=== PATIENT | female | born 1960 | race Caucasian/White ===

== ENCOUNTER 2017-05-24 19:01 | Observation (INO) | payer BC ==
[2017-05-24] MEDS ORDERED: Sodium Chloride 0.9% 2.5 ML Syringe FLUSH PRN (19:20)
[2017-05-24] MEDS ORDERED: Aspirin 81 MG Tab.Chew PO ONE (19:20)
[2017-05-24] MEDS ORDERED: Nitroglycerin 0.4 MG Tab.SL SL ONE (19:20)
[2017-05-24] MEDS ORDERED: Famotidine 20 MG/2 ML SDV IVPUSH ONE (19:20)
[2017-05-24] MEDS ORDERED: Sodium Chloride 0.9% 1,000 ML IV ONE (19:20)
[2017-05-24] MEDS ORDERED: Sodium Chloride 0.9% 10 ML Syringe FLUSH PRN (19:20)
--- NOTE | 2017-05-24 19:24 | EDM.PDOC ---
ED HPI GENERAL MEDICAL PROBLEM - General Chief Complaint: Chest Pain Stated Complaint: CHEST PAIN Time Seen by Provider: 05/24/17 19:11 Source of Information: Reports: Patient, Family History Limitations: Reports: No Limitations - History of Present Illness INITIAL COMMENTS - FREE TEXT/NARRATIVE: HISTORY AND PHYSICAL: []57-year-old female with chest pressure for an hour and 45 minutes History of Present Illness: []Patient has family history of mother having IL in her 50s although mom was a heavy smoker Patient does take blood pressure medication and cholesterol medications Review of Systems: As per history of present illness and below otherwise all systems reviewed and negative. Past medical history: As per history of present illness and as reviewed below otherwise noncontributory. Surgical history: As per history of present illness and as reviewed below otherwise noncontributory. Social history: No reported history of drug or alcohol abuse. Family history: As per history of present illness and as reviewed below otherwise noncontributory. Physical exam: HEENT: Atraumatic, normocehpalic, pupils reactive, negative for conjunctival pallor or scleral icterus, mucous membranes moist, throat clear, neck supple, nontender, trachea midline. Lungs: Clear to auscultation, breath sounds equal bilaterally, chest non tender. Heart: S1S2, regular, negative for clicks, rubs, or JVD. Abdomen: Soft, nondistended, nontender. Negative for masses or hepatossplenmegaly. Negative for costovertebral tenderness. Pelvis: Stable nontender. Genitourinary: Deferred. Rectal: Deferred Extremities: Atraumatic, negative for cords or calf pain. Neurovascular unremarkable. Neuro: Awake, alert, oriented. Cranial nerves II through XII unremarkable. Cerebellum unremarkable. Motor and sensory unremarkable throughout. Exam nonfocal. Discussed case with Dr. Mast who is accepted patient for observation on telemetry for chest pain Diagnostics: [CBC CMP and lipase troponin UA chest x-ray] Therapeutics: [Nitroglycerin sublingual 2] Impression: [Chest pain resolved] Plan: [Refer for observation] Definitive disposition and diagnosis as appropriate pending reevaluation and review of above. Onset: Today, Sudden Duration: Hour(s): Location: Reports: Chest Quality: Reports: Pressure Severity: Moderate (3-4) Worsens with: Reports: None Chest Pain Score (Numeric/FACES): 3 - Related Data Allergies Allergy/AdvReac Type Severity Reaction Status Date / Time No Known Allergies Allergy Verified 08/12/14 08:22 Home Meds: Home Meds Benazepril HCl [Lotensin] 20 mg PO 05/24/17 [History] atorvaSTATin [Lipitor] 40 mg PO ONETIME 05/24/17 [History] Past Medical History Cardiovascular History: Reports: High Cholesterol, Hypertension Social & Family History - Tobacco Use Smoking Status *Q: Never Smoker - Caffeine Use Caffeine Use: Reports: Coffee, Soda - Recreational Drug Use Recreational Drug Use: No ED ROS GENERAL - Review of Systems Review Of Systems: ROS reveals no pertinent complaints other than HPI. ED EXAM, GENERAL - Physical Exam Exam: See Below (See dictation) EKG INTERPRETATION Rhythm: NSR Comparison: NA - No Prior EKG Course - Vital Signs Last Recorded V/S: Last Vital Signs Temp 36.4 C 05/24/17 19:09 Pulse 94 05/24/17 20:00 Resp 18 05/24/17 20:00 BP 104/62 05/24/17 20:00 Pulse Ox 98 05/24/17 20:00 - Orders/Labs/Meds Orders: Active Orders 24 hr Category Date Time Status Patient Status [ADT] Stat ADT 05/24/17 20:14 Ordered Cardiac Monitoring [RC] . DIRECTED Care 05/24/17 19:20 Active EKG Documentation Completion [RC] STAT Care 05/24/17 19:22 Active Oxygen Therapy [RC] ASDIRECTED Care 05/24/17 19:20 Active Pulse Oximetry [RC] ASDIRECTED Care 05/24/17 19:20 Active Chest 1V Frontal [CR] Stat Exams 05/24/17 19:20 Taken UA W/MICROSCOPIC [URIN] Stat Lab 05/24/17 19:20 Uncollected Sodium Chloride 0.9% [Normal Saline] 1,000 ml Med 05/24/17 19:20 Active IV .Bolus Sodium Chloride 0.9% [Saline Flush] Med 05/24/17 19:20 Active 10 ml FLUSH ASDIRECTED PRN Sodium Chloride 0.9% [Saline Flush] Med 05/24/17 19:20 Active 2.5 ml FLUSH ASDIRECTED PRN Saline Lock Insert [OM.PC] Stat Oth 05/24/17 19:20 Ordered Medication Orders Sodium Chloride (Normal Saline) 1,000 mls @ 999 mls/hr IV .Bolus ONE Stop: 05/24/17 20:20 Last Admin: 05/24/17 19:38 Dose: 999 mls/hr Sodium Chloride (Saline Flush) 10 ml FLUSH ASDIRECTED PRN PRN Reason: Keep Vein Open Sodium Chloride (Saline Flush) 2.5 ml FLUSH ASDIRECTED PRN PRN Reason: Keep Vein Open Labs: Laboratory Tests 05/24/17 05/24/17 05/24/17 Range/Units 19:25 19:25 19:25 WBC 9.23 (4.0-11.0) K/uL RBC 4.28 L (4.30-5.90) M/uL Hgb 13.0 (12.0-16.0) g/dL Hct 38.4 (36.0-46.0) % MCV 89.7 (80.0-98.0) fL MCH 30.4 (27.0-32.0) pg MCHC 33.9 (31.0-37.0) g/dL RDW Std Deviation 43.2 (28.0-62.0) fl RDW Coeff of Eleni 13 (11.0-15.0) % Plt Count 198 (150-400) K/uL MPV 9.20 (7.40-12.00) fL Neut % (Auto) 83.7 H (48.0-80.0) % Lymph % (Auto) 7.3 L (16.0-40.0) % [place] % (Auto) 7.7 (0.0-15.0) % Eos % (Auto) 1.2 (0.0-7.0) % Baso % (Auto) 0.1 (0.0-1.5) % Neut # (Auto) 7.7 H (1.4-5.7) K/uL Lymph # (Auto) 0.7 (0.6-2.4) K/uL [place] # (Auto) 0.7 (0.0-0.8) K/uL Eos # (Auto) 0.1 (0.0-0.7) K/uL Baso # (Auto) 0.0 (0.0-0.1) K/uL Nucleated RBC % 0.0 /100WBC Nucleated RBCs # 0 K/uL INR 0.98 (0.86-1.11) Sodium 137 (136-146) mmol/L Potassium 3.9 (3.5-5.1) mmol/L Chloride 101 (98-110) mmol/L Carbon Dioxide 27 (21-31) mmol/L BUN 20 (6.0-23.0) mg/dL Creatinine 1.0 (0.6-1.5) mg/dL Est Cr Clr Drug Dosing 54.51 mL/min Estimated GFR (MDRD) 56.7 ml/min Glucose 82 (60-110) mg/dL Calcium 9.5 (8.8-10.8) mg/dL Total Bilirubin 0.4 (0.1-1.5) mg/dL AST 29 (5-40) IU/L ALT 24 (8-54) IU/L Alkaline Phosphatase 57 (40-150) Troponin I (0.0-0.29) NG/ML Total Protein 7.9 (6.0-8.0) g/dL Albumin 4.4 (3.5-5.0) g/dL Globulin 3.5 (2.0-3.5) g/dL Albumin/Globulin Ratio 1.3 (1.3-2.8) Amylase 49 (10-90) U/L Lipase 19 (7-80) U/L 05/24/ Range/Units 19:25 WBC (4.0-11.0) K/uL RBC (4.30-5.90) M/uL Hgb (12.0-16.0) g/dL Hct (36.0-46.0) % MCV (80.0-98.0) fL MCH (27.0-32.0) pg MCHC (31.0-37.0) g/dL RDW Std Deviation (28.0-62.0) fl RDW Coeff of Eleni (11.0-15.0) % Plt Count (150-400) K/uL MPV (7.40-12.00) fL Neut % (Auto) (48.0-80.0) % Lymph % (Auto) (16.0-40.0) % [place] % (Auto) (0.0-15.0) % Eos % (Auto) (0.0-7.0) % Baso % (Auto) (0.0-1.5) % Neut # (Auto) (1.4-5.7) K/uL Lymph # (Auto) (0.6-2.4) K/uL [place] # (Auto) (0.0-0.8) K/uL Eos # (Auto) (0.0-0.7) K/uL Baso # (Auto) (0.0-0.1) K/uL Nucleated RBC % /100WBC Nucleated RBCs # K/uL INR (0.86-1.11) Sodium (136-146) mmol/L Potassium (3.5-5.1) mmol/L Chloride (98-110) mmol/L Carbon Dioxide (21-31) mmol/L BUN (6.0-23.0) mg/dL Creatinine (0.6-1.5) mg/dL Est Cr Clr Drug Dosing mL/min Estimated GFR (MDRD) ml/min Glucose (60-110) mg/dL Calcium (8.8-10.8) mg/dL Total Bilirubin (0.1-1.5) mg/dL AST (5-40) IU/L ALT (8-54) IU/L Alkaline Phosphatase (40-150) Troponin I < 0.10 (0.0-0.29) NG/ML Total Protein (6.0-8.0) g/dL Albumin (3.5-5.0) g/dL Globulin (2.0-3.5) g/dL Albumin/Globulin Ratio (1.3-2.8) Amylase (10-90) U/L Lipase (7-80) U/L Meds: Medications Generic Name Dose Route Start Last Admin Trade Name Freq PRN Reason Stop Dose Admin Sodium Chloride 1,000 mls @ 999 mls/hr 05/24/17 19:20 05/24/17 19:38 Normal Saline IV 05/24/17 20:20 999 mls/hr .Bolus ONE Administration Sodium Chloride 10 ml 05/24/17 19:20 Saline Flush FLUSH ASDIRECTED PRN Keep Vein Open Sodium Chloride 2.5 ml 05/24/17 19:20 Saline Flush FLUSH ASDIRECTED PRN Keep Vein Open Discontinued Medications Generic Name Dose Route Start Last Admin Trade Name Freq PRN Reason Stop Dose Admin Aspirin 324 mg 05/24/17 19:20 05/24/17 19:39 Aspirin PO 05/24/17 19:21 324 mg ONETIME ONE Administration Famotidine 20 mg 05/24/17 19:20 05/24/17 19:38 Pepcid IVPUSH 05/24/17 19:21 20 mg ONETIME ONE Administration Nitroglycerin 0.4 mg 05/24/17 19:20 05/24/17 19:49 Nitrostat SL 05/24/17 19:21 Not Given ONETIME ONE Nitroglycerin 0.4 mg 05/24/17 19:29 05/24/17 19:51 Nitrostat SL 05/24/17 19:40 0.4 mg Q5M PRN Administration Chest Pain Departure - Departure Time of Disposition: 20:17 Disposition: Refer to Observation Condition: Good Clinical Impression: Chest pain Qualifiers: Chest pain type: other chest pain Qualified Code(s): R07.89 - Other chest pain ; R07.8 - Other chest pain Forms: ED Department Discharge Additional Instructions: The following information is given to patients seen in the emergency department who are being discharged to home. This information is to outline your options for follow-up care. We provide all patients seen in our emergency department with a follow-up referral. The need for follow-up, as well as the timing and circumstances, are variable depending upon the specifics of your emergency department visit. If you don't have a primary care physician on staff, we will provide you with a referral. We always advise you to contact your personal physician following an emergency department visit to inform them of the circumstance of the visit and for follow-up with them and/or the need for any referrals to a consulting specialist. The emergency department will also refer you to a specialist when appropriate. This referral assures that you have the opportunity for followup care with a specialist. All of these measure are taken in an effort to provide you with optimal care, which includes your followup. Under all circumstances we always encourage you to contact your private physician who remains a resource for coordinating your care. When calling for followup care, please make the office aware that this follow-up is from your recent emergency room visit. If for any reason you are refused follow-up, please contact the [facility] emergency department at and asked to speak to the emergency department charge nurse. - My Orders Last 24 Hours: My Active Orders 05/24/17 19:20 Cardiac Monitoring [RC] . DIRECTED Oxygen Therapy [RC] ASDIRECTED Pulse Oximetry [RC] ASDIRECTED Chest 1V Frontal [CR] Stat UA W/MICROSCOPIC [URIN] Stat Sodium Chloride 0.9% [Normal Saline] 1,000 ml IV .Bolus Sodium Chloride 0.9% [Saline Flush] 10 ml FLUSH ASDIRECTED PRN Sodium Chloride 0.9% [Saline Flush] 2.5 ml FLUSH ASDIRECTED PRN Saline Lock Insert [OM.PC] Stat 05/24/17 19:22 EKG Documentation Completion [RC] STAT 05/24/17 20:14 Patient Status [ADT] Stat - Assessment/Plan Last 24 Hours: My Active Orders 05/24/17 19:20 Cardiac Monitoring [RC] . DIRECTED Oxygen Therapy [RC] ASDIRECTED Pulse Oximetry [RC] ASDIRECTED Chest 1V Frontal [CR] Stat UA W/MICROSCOPIC [URIN] Stat Sodium Chloride 0.9% [Normal Saline] 1,000 ml IV .Bolus Sodium Chloride 0.9% [Saline Flush] 10 ml FLUSH ASDIRECTED PRN Sodium Chloride 0.9% [Saline Flush] 2.5 ml FLUSH ASDIRECTED PRN Saline Lock Insert [OM.PC] Stat 05/24/17 19:22 EKG Documentation Completion [RC] STAT 05/24/17 20:14 Patient Status [ADT] Stat
[2017-05-24] MEDS: Nitroglycerin 0.4 MG Tab.SL SL PRN ×2 (19:46→19:51)
--- NOTE | 2017-05-24 20:48 | PCM.HP ---
H&P History of Present Illness - General Admit Problem/Dx: Admission Diagnosis/Problem Admission Diagnosis/Problem Chest pain - History of Present Illness Initial Comments - Free Text/Narative: 57 yo female with pmh of hypertension, and hyperlipidemia who presents with chest pain. She believes it might be indigestion. She describes it a as a feeling of fullness extending from her epigastrum to her neck. She denies any shortness of breath or cough. Chest Pain Score (Numeric/FACES): 3 - Related Data Allergies/Adverse Reactions: Allergies Allergy/AdvReac Type Severity Reaction Status Date / Time No Known Allergies Allergy Verified 08/12/14 08:22 Home Medications: Home Meds Benazepril HCl [Lotensin] 20 mg PO DAILY 05/24/17 [History] atorvaSTATin [Lipitor] 40 mg PO DAILY 05/24/17 [History] Past Medical History Cardiovascular History: Reports: High Cholesterol, Hypertension Social & Family History - Tobacco Use Smoking Status *Q: Never Smoker - Caffeine Use Caffeine Use: Reports: Coffee, Soda - Recreational Drug Use Recreational Drug Use: No H&P Review of Systems - Review of Systems: Review Of Systems: ROS reveals no pertinent complaints other than HPI. Exam - Exam Exam: See Below - Vital Signs Vital Signs: Last Vital Signs Temp 36.4 C 05/24/17 19:09 Pulse 89 05/24/17 20:20 Resp 20 05/24/17 20:20 BP 125/68 05/24/17 20:20 Pulse Ox 99 05/24/17 20:20 Weight: 77.111 kg - Exam General: Alert, Oriented, 4 HEENT: Mucosa Moist & [place] Lungs: Clear to Auscultation, Normal Respiratory Effort Cardiovascular: Regular Rate, Regular Rhythm GI/Abdominal Exam: Soft, Non-Tender Extremities: Normal Inspection Skin: Warm, Dry, Intact - Patient Data Result Diagrams: 05/24/17 19:25 05/24/17 19:25 *Q Meaningful Use (ADM) - VTE *Q VTE Criteria *Q: - Stroke *Q Stroke Criteria *Q: - AMI *Q AMI Criteria *Q: Problem List Initiated/Reviewed/Updated: Yes Orders Last 24hrs: Active Orders 24 hr Category Date Time Status Antiembolic Devices [RC] PER UNIT ROUTINE Care 05/24/17 20:43 Ordered Oxygen Therapy [RC] PRN Care 05/24/17 20:42 Ordered Up ad Yadira [RC] ASDIRECTED Care 05/24/17 20:42 Ordered VTE/DVT Education [RC] PER UNIT ROUTINE Care 05/24/17 20:42 Ordered Vital Signs [RC] Q4H Care 05/24/17 20:42 Ordered Regular Diet [DIET] Diet 05/24/17 Breakfast Ordered TROPONIN I [CHEM] Q6H Lab 05/24/17 01:00 Ordered TROPONIN I [CHEM] Q6H Lab 05/24/17 07:00 Ordered Sequential Compression Device [OM.PC] Per Unit Routine Oth 05/24/17 20:42 Ordered Resuscitation Status Routine Resus Stat 05/24/17 20:42 Ordered Medication Orders Sodium Chloride (Saline Flush) 10 ml FLUSH ASDIRECTED PRN PRN Reason: Keep Vein Open Sodium Chloride (Saline Flush) 2.5 ml FLUSH ASDIRECTED PRN PRN Reason: Keep Vein Open Assessment/Plan Comment:: 57 yo female admitted for chest pain rule out.
[2017-05-25 08:11] VITALS: BP 110/71
[2017-05-25] MEDS ORDERED: atorvaSTATin 40 MG Tab PO SCH (09:00)
[2017-05-25] MEDS ORDERED: Benazepril 10 MG Tab PO SCH (09:00)
[2017-05-25] MEDS ORDERED: Pantoprazole 40 MG in Sodium Chloride 0.9% 10 ML IVPUSH ONE (09:17)
--- NOTE | 2017-05-25 09:40 | CR ---
EXAM DATE: 05/24/17 PATIENT'S AGE: 57 Patient: CHARITY MARTÍNEZ Facility: [place], [place] Site . Site : 1960 Study: XRay Chest [id number]/25/2017 7:47:00 PM Ordering Physician: Doctor Evans Final Report: INDICATION: chest heaviness TECHNIQUE: Chest 1 view. COMPARISON: None. FINDINGS: Cardiovascular and mediastinum: Heart size and vasculature are normal in caliber and appearance. Mediastinum is within normal limits. Lungs and pleural space: Lungs are clear. No sign of infiltrate or mass. No sign of pleural effusion. No pneumothorax. Bones and soft tissues: No significant findings. IMPRESSION: Unremarkable chest. Dictated by: Jerry Barajas MD @ 05/24/2017 19:55:55 (Electronic Signature) Report Signed by Proxy. [facility] HOSPITALMiesha
--- NOTE | 2017-05-25 11:39 | PCM.DCSUM1 ---
Discharge Summary - Hospital Course Brief History: 57 yo female with pmh of hypertension, and hyperlipidemia who presents with chest pain. She believes it might be indigestion. She describes it a as a feeling of fullness extending from her epigastrum to her neck. She denies any shortness of breath or cough. - Discharge Data Discharge Date: 05/25/17 Discharge Disposition: Home, Self-Care 01 Condition: Good - Patient Instructions Diet: Heart Healthy Diet Activity: As Tolerated Driving: May Drive Today Notify Provider of: Fever, Increased Pain, Swelling and Redness, Drainage, Nausea and/or Vomiting - Discharge Plan Home Medications: Home Meds Benazepril HCl [Lotensin] 20 mg PO DAILY 05/24/17 [History] atorvaSTATin [Lipitor] 40 mg PO DAILY 05/24/17 [History] Patient Handouts: Nonspecific Chest Pain, [id number] Referrals: Chay Garnica MD [Primary Care Provider] - 06/02/17 10:45 am - Discharge Summary/Plan Comment DC Time >30 min.: No Discharge Summary/Plan Comment: Discharge Diagnoses Atypical chest pain Indigestion HTN Hyperlipidemia Neetu was admitted, troponins negative and telemetry remained SR 80-90s. ACS ruled out, due to family history and risk factors she would be a good candidate for stress test. She feels this was indigestion. She would like to see and discuss this with Dr. Garnica prior to scheduling a stress test. She is to continue home medications along with ASA daily. She will follow up with PCP next week. Encouraged to return to ED or clinic if concerns should arise. - General Info Date of Service: 05/25/17 Admission Dx/Problem (Free Text: Admission Diagnosis/Problem Admission Diagnosis/Problem Chest pain Functional Status: Reports: Pain Controlled, Tolerating Diet, Ambulating, Urinating - Review of Systems Pulmonary: Reports: No Symptoms, Cough. Denies: Shortness of Breath, Sputum Cardiovascular: Reports: No Symptoms. Denies: Chest Pain Gastrointestinal: Reports: Nausea, Other (slight indigestion feeling, still but much improved from when she arrived yesterday). Denies: Abdominal Pain Genitourinary: Reports: No Symptoms Musculoskeletal: Reports: No Symptoms Skin: Reports: No Symptoms Neurological: Reports: No Symptoms Psychiatric: Reports: No Symptoms - Patient Data Vitals - Most Recent: Last Vital Signs Temp 98.3 F 07/26/17 08:00 Pulse 88 05/25/17 08:00 Resp 22 H 05/25/17 08:00 BP 110/71 05/25/17 08:00 Pulse Ox 94 L 05/25/17 08:00 Weight - Most Recent: 77.111 kg I&O - Last 24 hours: Intake & Output 05/24/17 05/25/17 05/25/17 22:59 06:59 14:59 Intake Total 800 Output Total 1200 Balance -400 Lab Results - Last 24 hrs: Laboratory Results - last 24 hr 05/24/17 05/25/17 05/25/17 Range/Units 20:50 00:55 07:11 Troponin I < 0.10 < 0.10 (0.0-0.29) NG/ML Urine Color YELLOW Urine Appearance CLEAR Urine pH 6.0 (5.0-8.0) Ur Specific [place] 1.015 (1.001-1.035) Urine Protein NEGATIVE (NEGATIVE) mg/dL Urine Glucose (UA) NEGATIVE (NEGATIVE) mg/dL Urine Ketones NEGATIVE (NEGATIVE) mg/dL Urine Occult Blood NEGATIVE (NEGATIVE) Urine Nitrite NEGATIVE (NEGATIVE) Urine Bilirubin NEGATIVE (NEGATIVE) Urine Urobilinogen 0.2 (<2.0) EU/dL Ur Leukocyte Esterase SMALL (NEGATIVE) Urine RBC 0-1 (0-2/HPF) Urine WBC 0-2 (0-5/HPF) Ur Epithelial Cells RARE (NONE-FEW) Urine Bacteria RARE (NEGATIVE) Med Orders - Current: Current Medications Discontinued Medications Aspirin (Aspirin) 324 mg PO ONETIME ONE Stop: 05/24/17 19:21 Last Admin: 05/24/17 19:39 Dose: 324 mg Atorvastatin Calcium (Lipitor) 40 mg PO DAILY [facility] Last Admin: 05/25/17 10:06 Dose: Not Given Benazepril HCl (Lotensin) 20 mg PO DAILY VINAYAK Last Admin: 05/25/17 10:07 Dose: Not Given Famotidine (Pepcid) 20 mg IVPUSH ONETIME ONE Stop: 05/24/17 19:21 Last Admin: 05/24/17 19:38 Dose: 20 mg Sodium Chloride (Normal Saline) 1,000 mls @ 999 mls/hr IV .Bolus ONE Stop: 05/24/17 20:20 Last Admin: 05/24/17 19:38 Dose: 999 mls/hr Pantoprazole Sodium 40 mg/ (Sodium Chloride) 10 mls @ 300 mls/hr IVPUSH NOW ONE Stop: 05/25/17 09:18 Last Admin: 05/25/17 10:06 Dose: Not Given Nitroglycerin (Nitrostat) 0.4 mg SL ONETIME ONE Stop: 05/24/17 19:21 Last Admin: 05/24/17 19:49 Dose: Not Given Nitroglycerin (Nitrostat) 0.4 mg SL Q5M PRN PRN Reason: Chest Pain Stop: 05/24/17 19:40 Last Admin: 05/24/17 19:51 Dose: 0.4 mg Sodium Chloride (Saline Flush) 10 ml FLUSH ASDIRECTED PRN PRN Reason: Keep Vein Open Sodium Chloride (Saline Flush) 2.5 ml FLUSH ASDIRECTED PRN PRN Reason: Keep Vein Open - Exam General: Reports: Alert, Oriented, Cooperative Neck: Reports: Supple Lungs: Reports: Clear to Auscultation, Normal Respiratory Effort Cardiovascular: Reports: Regular Rate, Regular Rhythm GI/Abdominal Exam: Normal Bowel Sounds, Soft, Non-Tender, No Organomegaly, No Distention, No Abnormal Bruit, No Mass, Pelvis Stable Skin: Reports: Warm, Dry, Intact Neurological: Reports: No New Focal Deficit Psy/Mental Status: Reports: Alert, Normal Affect, Normal Mood *Q Meaningful Use (DIS) - VTE *Q VTE Criteria *Q: - Stroke *Q Stroke Criteria *Q: - AMI *Q AMI Criteria *Q:
== END 2017-05-25 10:00 | disposition home or self-care (01) ==
LOC: MW.ED 19:01 → MW.MS 20:14
PROVIDERS: ADMIT Internal Medicine; ATTEND Internal Medicine
DX: R07.89 Other chest pain (principal); I10 Essential (primary) hypertension; E78.5 Hyperlipidemia, unspecified; E78.00 Pure hypercholesterolemia, unspecified; Z79.899 Other long term (current) drug therapy
CPT/HCPCS: 36415; 71010; 80053; 81001; 82150; 83690; 84484; 85025; 85610; 93005; 96361; 96374; 99285; A9270; G0378; J7040

== ENCOUNTER 2022-04-30 17:24 | Inpatient (IN) | payer BC ==
[2022-04-30] MEDS ORDERED: Morphine 4 MG/ML VIAL IVPUSH ONE (18:04)
[2022-04-30 18:05] LABS: CARBON DIOXIDE,CO2 28.5 mmol/L (21.0-32.0); POTASSIUM,K 3.4 mmol/L (3.5-5.1)
[2022-04-30] MEDS ORDERED: Ondansetron 4 MG/2 ML SDV IVPUSH ONE (18:08)
[2022-04-30 18:39] LABS: CORONAVIRUS COVID-19 NAA NEGATIVE (NEGATIVE); INFLUENZA A NAA NEGATIVE (NEGATIVE); INFLUENZA B NAA NEGATIVE (NEGATIVE)
[2022-04-30] MEDS ORDERED: Sodium Chloride 0.9% 1,000 ML IV ONE ×2 (19:38→19:44)
[2022-04-30] MEDS ORDERED: Ketorolac 30 MG/ML SDV IVPUSH ONE (20:20)
[2022-04-30] MEDS ORDERED: Aspirin 81 MG Tab.Chew PO ONE (21:33)
[2022-04-30] MEDS ORDERED: cefTRIAXone 1 GM in Sodium Chloride 0.9% 50 ML IV ONE (21:36)
[2022-04-30] MEDS ORDERED: Azithromycin 500 MG in Sodium Chloride 0.9% 250 ML IV ONE (21:36)
[2022-05-01 06:28] LABS: POTASSIUM,K 4.3 mmol/L (3.5-5.1)
[2022-05-01 08:39] VITALS: PULSE 92
[2022-05-01] MEDS ORDERED: atorvaSTATin 40 MG Tab PO SCH (09:00)
[2022-05-01] MEDS ORDERED: Benazepril 10 MG Tab PO SCH (09:00)
[2022-05-01 09:19] VITALS: BP 124/67
[2022-05-01] MEDS ORDERED: Azithromycin 500 MG in Sodium Chloride 0.9% 250 ML IV SCH (21:00)
[2022-05-01] MEDS ORDERED: Azithromycin 500 MG Vial IV SCH (21:00)
[2022-05-01] MEDS ORDERED: cefTRIAXone 1 GM in Sodium Chloride 0.9% 50 ML IV SCH (21:00)
== END 2022-05-01 12:00 | disposition home or self-care (01) | DRG 207 ==
LOC: MW.ED 17:24 → MW.MS 22:05
PROVIDERS: ADMIT Internal Medicine; ATTEND Internal Medicine
DX: I31.9 Disease of pericardium, unspecified (principal); J18.9 Pneumonia, unspecified organism; Z20.822 Contact with and (suspected) exposure to COVID-19; E78.00 Pure hypercholesterolemia, unspecified; I10 Essential (primary) hypertension; E78.5 Hyperlipidemia, unspecified; I25.10 Atherosclerotic heart disease of native coronary artery without angina pectoris; Z79.899 Other long term (current) drug therapy; Z90.710 Acquired absence of both cervix and uterus; Z86.16 Personal history of COVID-19; Z98.890 Other specified postprocedural states; Z95.1 Presence of aortocoronary bypass graft
CPT/HCPCS: 0240U; 36415; 71045; 71045-26; 71275; 71275-26; 74174; 74174-26; 80048; 80053; 81003; 83605; 83690; 84484; 85025; 85379; 85652; 86140; 87040; 96361; 96365; 96368; 96375; 99285-25; A9270-GY; J0456; J0696; J1885; J2270; J2405; J7030; J7050

== ENCOUNTER 2024-11-01 08:00 | Day surgery (SDC) | payer MEDICARE, BC ==
[~2024-11-01 08:00] MED LIST: Sodium Chloride 0.9% 10 ML Syringe FLUSH PRN; Sodium Chloride 0.9% 2.5 ML Syringe FLUSH PRN; Sodium Chloride 0.9% 20 ML SDV IV PRN
[2024-11-01] MEDS ORDERED: Propofol 200 MG/20 ML SDV ONE (08:09)
[2024-11-01] MEDS: Lactated Ringers 1,000 ML IV SCH (08:18)
[2024-11-01] MEDS ORDERED: ceFAZolin 1 GM Vial ONE (08:33)
[2024-11-01] MEDS ORDERED: propofoL 500 MG/50 ML 0 ML ONE (08:42)
[2024-11-01 09:09] VITALS: PULSE 79
[2024-11-01 09:28] VITALS: BP 136/70
== END 2024-11-01 09:40 | disposition home or self-care (01) ==
LOC: MW.SDS 08:00
PROVIDERS: ATTEND Surgery
DX: Z12.11 Encounter for screening for malignant neoplasm of colon (principal); R19.5 Other fecal abnormalities; I10 Essential (primary) hypertension; E78.00 Pure hypercholesterolemia, unspecified; Z79.899 Other long term (current) drug therapy
CPT/HCPCS: G0121; J0690; J2704; J7120; 00811; 45378